=== PATIENT | male | born 1990 | race Caucasian/White ===

== ENCOUNTER 2025-02-12 18:52 | Emergency (ER) | payer SELFPAY ==
[~2025-02-12] VITALS: Ht 170.2 cm; Wt 70.0 kg
[2025-02-12 19:21] VITALS: TEMP 37; O2SAT 100
[2025-02-12 19:42] VITALS: TEMP 98.6
[2025-02-12] MEDS: ACETAMINOPHEN 500MG TABLET PO ONE (19:42)
[2025-02-12] MEDS: TETANUS, DIPHTHERIA, PERTUSSIS VAC/PF 0.5ML (>10YR OLD) IM ONE (19:43)
[2025-02-12] MEDS: BACITRACIN ZINC OINT UDPKT TOP ONE (19:59)
[2025-02-12] MEDS: LIDOCAINE HCL 1% 20ML VIAL INFIL ONE (20:09)
[2025-02-12] MEDS ORDERED: BO1 TP (21:06)
[2025-02-12 22:14] VITALS: BP 123/87; PULSE 83; RESP 18; O2SAT 98
== END 2025-02-12 22:15 | disposition home or self-care (01) ==
LOC: ER 18:52
DX: S61.210A Laceration without foreign body of right index finger without damage to nail, initial encounter (principal)
CPT/HCPCS: 73120; 90715; 12002; 90471; 99283; Z7610 ×2